=== PATIENT | male | born 1955 | race Caucasian/White ===

== ENCOUNTER 2025-01-23 17:36 | Emergency (ER) | payer MEDICARE ==
--- NOTE | 2025-01-23 18:22 | ED ---
Wound/Laceration HPI - General Source: patient, RN notes reviewed Mode of arrival: ambulatory Limitations: no limitations <Perez Butt - Last Filed: 01/23/25 18:22> - General Source: patient, RN notes reviewed, old records reviewed Mode of arrival: ambulatory Limitations: no limitations - History of Present Illness -: hour(s) Context: accidental Associated Symptoms: none Treatments Prior to Arrival: bandage <Cj Acuña - Last Filed: 01/23/25 20:18> - General Chief Complaint: Wound/Laceration Stated Complaint: L arm lac Time Seen by Provider: 01/23/25 17:52 - History of Present Illness Initial Comments: Quick note: This is a 69-year-old male presenting from [facility] for left forearm laceration occurring at 1100 this morning. Patient states he was using a circular saw when it fired back, cutting into the lateral aspect of his left forearm. Patient states he is unable to move his left ring finger, stating he was sent from [facility] for possible surgical referral due to loss of motor function. Patient states he had x-ray performed at [facility] and also received tetanus vaccination at that time. Patient denies loss of distal sensation. (Perez Butt) This is a 69 male to ER for reevaluation of left forearm laceration with tendon injury (Cj Acuña) - Related Data Allergies Allergy/AdvReac Type Severity Reaction Status Date / Time No Known Allergies Allergy Verified 01/23/25 18:16 Review of Systems ROS Other: All systems not noted in ROS Statement are negative. <Perez Butt - Last Filed: 01/23/25 18:22> ROS Other: All systems not noted in ROS Statement are negative. <Cj Acuña - Last Filed: 01/23/25 20:18> ROS Statement: Those systems with pertinent positive or pertinent negative responses have been documented in the HPI. Past Medical History Past Medical History: No Reported History Past Surgical History: No Surgical Hx Reported Smoking Status: Never smoker <Perez Butt - Last Filed: 01/23/25 18:22> General Exam Limitations: no limitations <Perez Butt - Last Filed: 01/23/25 18:22> General appearance: alert, in no apparent distress Head exam: Present: atraumatic, normocephalic, normal inspection Eye exam: Present: normal appearance, PERRL, EOMI. Absent: scleral icterus, conjunctival injection, periorbital swelling ENT exam: Present: normal exam, mucous membranes moist Neck exam: Present: normal inspection. Absent: tenderness, meningismus, lymphadenopathy Respiratory exam: Present: normal lung sounds bilaterally. Absent: respiratory distress, wheezes, rales, rhonchi, stridor Cardiovascular Exam: Present: regular rate, normal rhythm, normal heart sounds. Absent: systolic murmur, diastolic murmur, rubs, gallop, clicks GI/Abdominal exam: Present: soft, normal bowel sounds. Absent: distended, tenderness, guarding, rebound, rigid Extremities exam: Present: normal inspection, full ROM, normal capillary refill. Absent: tenderness, pedal edema, joint swelling, calf tenderness Back exam: Present: normal inspection Neurological exam: Present: alert, oriented X3, CN II-XII intact Psychiatric exam: Present: normal affect, normal mood Skin exam: Present: warm, dry, intact, normal color. Absent: rash <Cj Acuña - Last Filed: 01/23/25 20:18> - General Exam Comments Initial Comments: Visual Physical Exam Vital signs reviewed General: Well-appearing, nontoxic, no acute distress. Head: Normocephalic, atraumatic Eyes: PERRLA, EOMI ENT: Airway patent Chest: Nonlabored breathing Skin: No visual rash, normal skin tone Neuro: Alert and oriented 3 Musculoskeletal: No gross abnormalities. Patient unable to move left ring finger (Perez Butt) Course <Cj Acuña - Last Filed: 01/23/25 20:18> Vital Signs 01/23/25 18:08 Temperature 98 F Pulse Rate 60 Respiratory 16 Rate Blood Pressure 163/78 O2 Sat by Pulse 98 Oximetry - Reevaluation(s) Reevaluation #1: 01/23/25 20:17 Medical records reviewed (Cj Acuña) Reevaluation #2: 01/23/25 20:17 Wound cleaned and dressed (Cj Acuña) Reevaluation #3: 01/23/25 20:17 Patient informed of results follow-up with orthopedics (Cj Acuña) Reevaluation #4: Was pt. sent in by a medical professional or institution ([facility], [facility], urgent care, hospital, or skilled nursing...) When possible be specific @ -no Did you speak to anyone other than the patient for history (EMS, parent, family, police, friend...)? What history was obtained from this source @ -no Did you review nursing and triage notes (agree or disagree)? Why? @ -agree Are old charts reviewed (outside hosp., previous admission, EMS record, old EKG, old radiological studies, urgent care reports/EKG's, skilled nursing records)? Report findings @ -yes Differential Diagnosis (chest pain, altered mental status, abdominal pain women, abdominal pain men, vaginal bleeding, weakness, fever, dyspnea, syncope, headache, dizziness, GI bleed, back pain, seizure, CVA, palpatations, mental health, musculoskeletal)? @ -prior EKG interpreted by me (3pts min.). @ -yes X-rays interpreted by me (1pt min.). @ -yes negative for acute disease CT interpreted by me (1pt min.). @ -no U/S interpreted by me (1pt. min.). @ -no What testing was considered but not performed or refused? (CT, X-rays, U/S, labs)? Why? @ -none What meds were considered but not given or refused? Why? @ -none Did you discuss the management of the patient with other professionals (lalita kinsey i.e. [facility], [facility], lab, RT, psych nurse, social economist, instructional support assistant, teacher, correctional security officer, pillowcase cleaner)? Give summary @ -no Was smoking cessation discussed for >3mins.? @ -no Was critical care preformed (if so, how long)? @ -no Were there social determinants of health that impacted care today? How? (Homelessness, low income, unemployed, alcoholism, drug addiction, transportation, low edu. Level, literacy, decrease access to med. care, fci, rehab)? @ -none Was there de-escalation of care discussed even if they declined (Discuss DNR or withdrawal of care, Hospice)? DNR status @ -no What co-morbidities impacted this encounter? (DM, HTN, Smoking, COPD, CAD, Cancer, CVA, ARF, Chemo, Hep., AIDS, mental health diagnosis, sleep apnea, morbid obesity)? @ -none Was patient admitted / discharged? Hospital course, mention meds given and route, prescriptions, significant lab abnormalities, going to OR and other pertinent info. @ - Undiagnosed new problem with uncertain prognosis? @ -no Drug Therapy requiring intensive monitoring for toxicity (Heparin, Nitro, Insulin, Cardizem)? @ -no Were any procedures done? @ -no Diagnosis/symptom? @ - Acute, or Chronic, or Acute on Chronic? @ -Acute Uncomplicated (without systemic symptoms) or Complicated (systemic symptoms)? @ -Complicated Side effects of treatment? @ -no Exacerbation, Progression, or Severe Exacerbation? @ -exacerbation Poses a threat to life or bodily function? How? (Chest pain, USA, ME, pneumonia, PE, COPD, DKA, ARF, appy, cholecystitis, CVA, Diverticulitis, Homicidal, Suicidal, threat to staff... and all critical care pts) @ -yes (jC Acuña) Medical Decision Making <Perez Butt - Last Filed: 01/23/25 18:22> <Cj Acuña - Last Filed: 01/23/25 20:18> - Medical Decision Making I completed the quick note portion of this chart signed SARAN Burnette (Perez Butt) 69 male to ER for evaluation of laceration with likely tendon injury. Patient has no complaints here in the ER and can be discharged home (Cj Acuña) Disposition <Perez Butt - Last Filed: 01/23/25 18:22> Time of Disposition: 20:20 <Cj Acuña - Last Filed: 01/23/25 20:18> Clinical Impression: Laceration, Extensor tendon laceration of forearm with open wound Instructions (If sedation given, give patient instructions): Care For Your Stitches (ED), Tendon Laceration (ED) Referrals: Dav Moreau MD [STAFF PHYSICIAN] - 1-2 days
[2025-01-23] MEDS: CEPHALEXIN 500 MG CAP PO STA (20:24)
[2025-01-23] MEDS: CEPHALEXIN 500MG STARTER PACK 4 CAP BTL PO STA (20:24)
[2025-01-23 20:33] VITALS: BP 158/73; PULSE 73; RESP 18; TEMP 98
== END 2025-01-23 20:30 | disposition home or self-care (01) ==
LOC: EC 17:36
DX: S51.812A Laceration without foreign body of left forearm, initial encounter (principal); S56.522A Laceration of other extensor muscle, fascia and tendon at forearm level, left arm, initial encounter; W29.1XXA Contact with electric knife, initial encounter
CPT/HCPCS: 99282